=== PATIENT | female | born 1990 | race Caucasian/White ===

== ENCOUNTER 2016-12-08 05:17 | Outpatient (CLI) | payer OTHER ==
[~2016-12-08 05:17] MED LIST: ENDOCET 5-3251 EACH PO; IBUPROFEN800 MG PO; PRENATAL TABLE1 EAC3 PO
[2016-12-08 05:34] VITALS: BP 125/69
[2016-12-08 06:34] VITALS: BP 114/59
[2016-12-08 08:09] VITALS: BP 99/61
[2016-12-08] MEDS ORDERED: PRENATAL GUMMI1 EACH PO (08:18)
[2016-12-08] MEDS ORDERED: IBUPROFEN800 MG PO (19:05)
== END 2016-12-08 09:00 | disposition home or self-care (01) ==
LOC: LDRP-OP 05:17 → 2WEST 05:18 → LDRP-OP 01-19 11:29
DX: O47.1 False labor at or after 37 completed weeks of gestation (principal); Z3A.38 38 weeks gestation of pregnancy
CPT/HCPCS: 59025; G0378

== ENCOUNTER 2016-12-08 12:44 | Inpatient (IN) | payer OTHER ==
[2016-12-08] VITALS (10 sets, daily range): BP systolic 99–122; BP diastolic 50–71
[~2016-12-08] VITALS: Ht 160 cm; Wt 95.7 kg
[~2016-12-08 12:44] MED LIST changes: +PRENATAL GUMMI1 EACH PO
[2016-12-08 14:23] LABS: EOSINOPHIL (%) 0.1 % (0-5); IMMATURE GRANULOCYTE (%) 1.6 % (0.0-0.7); IMMATURE GRANULOCYTE COUNT 0.3 K/uL; LYMPHOCYTE COUNT 2.1 K/uL (1.0-2.8); MCH 27.7 PG (29.0-34.0); MCHC 31.9 G/DL (30.0-36.0); MCV 86.7 FL (83-99); MEAN PLAT.VOLUME 10.1 uM^3 (9.5-12.4); MONOCYTE COUNT 0.5 K/uL (0-0.8); PLATELET COUNT 219 K/uL (156-360); RBC DIS.WIDTH-CV 13.9 % (11.8-14.6); RBC DIS.WIDTH-SD 43.8 % (39-53); RED BLOOD COUNT 4.15 M/uL (3.80-5.20); WHITE BLOOD COUNT 15.8 K/uL (4.1-10.2)
[2016-12-08] MEDS ORDERED: IBUPROFEN800 MG PO (19:05)
[2016-12-09 07:38] VITALS: BP 114/55
[2016-12-09 15:59] VITALS: BP 121/54
[2016-12-09 23:00] VITALS: BP 104/50
== END 2016-12-10 11:16 | disposition home or self-care (01) | DRG 775 ==
LOC: LDRP-OP 12:44 → 2WEST 12:45 → LDRP-OP 01-19 09:10
PROVIDERS: Nurse Practitioner
PROC: 3E0S3CZ (ICD-10-PCS; principal; 2016-12-08)
PROC: 10907ZC Drainage of Amniotic Fluid, Therapeutic from Products of Conception, Via Natural or Artificial Opening (ICD-10-PCS; principal; 2016-12-08)
PROC: 10E0XZZ Delivery of Products of Conception, External Approach (ICD-10-PCS; principal; 2016-12-08)
PROC: 00HU33Z Insertion of Infusion Device into Spinal Canal, Percutaneous Approach (ICD-10-PCS; principal; 2016-12-08)
DX: O99.214 Obesity complicating childbirth (principal); E66.9 Obesity, unspecified; O99.334 Smoking (tobacco) complicating childbirth; F17.200 Nicotine dependence, unspecified, uncomplicated; Z68.30 Body mass index [BMI] 30.0-30.9, adult; Z3A.38 38 weeks gestation of pregnancy; Z37.0 Single live birth; O70.0 First degree perineal laceration during delivery
CPT/HCPCS: 85025; C1755; J1050; J3010; J7120

== ENCOUNTER 2017-12-11 09:48 | Emergency (ER) | payer OTHER ==
[~2017-12-11] VITALS: Ht 175.3 cm; Wt 85.1 kg
[2017-12-11 10:28] LABS: HEMATOCRIT 42.3 % (36.0-46.0); HEMOGLOBIN 14.2 G/DL (11.9-15.5); MCH 29.3 PG (29.0-34.0); MCHC 33.6 G/DL (30.0-36.0); MCV 87.2 FL (83-99); PLATELET COUNT 257 K/uL (156-360); RBC DIS.WIDTH-CV 12.6 % (11.8-14.6); RBC DIS.WIDTH-SD 39.9 % (39-53); RED BLOOD COUNT 4.85 M/uL (3.80-5.20)
[2017-12-11 10:38] LABS: CHLORIDE 108 mEq/L (99-109); POTASSIUM 4.6 mEq/L (3.7-5.4); SODIUM 141 mEq/L (136-147)
[2017-12-11 10:40] LABS: GLUCOSE 85 mg/dL (70-99)
[2017-12-11 10:44] LABS: CREATININE 0.8 mg/dL (0.6-1.3); GFR ESTIMATE (CALCULATED) > 59 mL/min/
[2017-12-11 10:45] LABS: UREA NITROGEN (BUN) 7 mg/dL (9-23)
[2017-12-11 10:52] LABS: QUANTITATIVE HCG < 4.0 MIU/ML
[2017-12-11] MEDS ORDERED: PROVENTIL HFA6.7 GM IH (11:27)
[2017-12-11] MEDS ORDERED: MEDROL DOSEPAK4 MG PO (11:27)
[2017-12-11] MEDS ORDERED: XANAX0.5 MG PO (11:27)
[2017-12-11 11:42] VITALS: BP 105/69
== END 2017-12-11 11:51 | disposition home or self-care (01) ==
LOC: EME 09:48
PROVIDERS: Physician Assistant
DX: R06.00 Dyspnea, unspecified (principal); R07.89 Other chest pain; I45.10 Unspecified right bundle-branch block; Z87.891 Personal history of nicotine dependence
CPT/HCPCS: 71046; 80048; 84702; 85027; 93005; 94640; 99281; 99284